=== PATIENT | male | born 1935 | race Caucasian/White ===

== ENCOUNTER → 2017-05-08 | Day surgery (SDC) | payer MEDICARE, OTHER ==
[~2017-05-08] MED LIST: BACITRACIN IM FOR SOLN 50,000 UNIT VIAL ONE; BUPIVACAINE/EPINEPHRINE 0.25% 50 ML VIAL ONE; LACTATED RINGER'S 1000 ML INJ 1,000 ML ONE; LIDOCAINE 1%/EPINEPHrine 1:200,000 PF SOLN 30 ML VIAL ONE; PROPOFOL 100 MG/10 ML INJ IV ONE; SODIUM CHLORIDE 0.9% INJ 10 ML ONE; ceFAZolin INJ 1,000 MG VIAL ONE
--- NOTE | 2017-05-08 12:05 | TN ---
cc: MARIO BALL M.D. DATE OF SURGERY 05/08/2017 PREOPERATIVE DIAGNOSIS Recurrent left elbow olecranon bursitis. POSTOPERATIVE DIAGNOSIS Recurrent left elbow olecranon bursitis. PROCEDURE PERFORMED Revision left olecranon bursectomy with excision of redundant skin. SURGEON MD Scott ANESTHESIA General via laryngeal mask augmented by local infiltration. BLOOD LOSS Minimal. FLUID REPLACEMENT 250 cc of crystalloid. SPECIMENS Olecranon bursa that was sent for both aerobic and anaerobic cultures as well as formal pathology. DRAINS No drains were utilized. TOURNIQUET TIME No tourniquet was utilized. COMPLICATIONS There were no intraoperative complications. IMPLANTS No implants used. COUNTS All counts were correct. INDICATIONS FOR PROCEDURE Mr. Ludwig is a 81-year-old gentleman who developed a large recurrent left olecranon bursa mass three years following resection of it previously. Please note that it had been resected once in 2012 and then again in 2013. Due to his limited mobility, he is very dependent on bearing weight on his elbows and he feels that he does that a great deal to reposition frequently and that is the likely etiology of his problem with his recurrent bursitis. He has never had any issues with septic olecranon bursitis or previous aspirations. As a result of the large uncomfortable and cosmetically concerning mass, he is being taken to the operating room for a third attempted resection. He was aware of the risks, benefits, potential complications and limitations of the procedure including the possible risks of recurrence, infection, wound healing, loss of elbow motion and neurovascular injury to the arm. Please note that he had been cleared medically by Dr. Segura, his primary care physician, and between his preoperative visit and his reassessment here today, he apparently was started on an oral antibiotic for a mild upper respiratory infection which seems relatively minimal at this time and he has excellent oxygen saturations and no evidence of any fever. DESCRIPTION OF PROCEDURE After the patient was properly identified in the holding area, he had correctly marked his left elbow and I had initialed it as well. 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 At this time he had his left arm prepped with alcohol and Hibiclens and then he was draped in the normal standard fashion also taking care to avoid excessive pressure over the fistula. Please note that an extremity drape was utilized as well as an impervious stockinette and wrapped gently with Coban. At this time a brief time-out was held confirming the left arm was the appropriate surgical site. The team was in agreement and the case was now initiated. He has a previous incision over the posterior aspect of the elbow which was carefully reopened. The subcutaneous tissues were divided and a distended bursa came immediately into view. As soon as the small penetration was made through the bursal sac itself, it spontaneously decompressed a large amount of dark blood consistent with large hematoma within the bursa itself. There were some hypertrophic changes to the bursa itself, but a large portion of the mass was related to the large hematoma. There was a fair amount of clotted blood as well that would been quite difficult to aspirate and would have likely required open debridement despite a successful aspiration as it would not likely evacuated the majority of it. At this time I meticulously performed an olecranon bursectomy taking off of the bursal tissue from the undersurface of the subcutaneous tissue being careful not to buttonhole through the skin and very meticulously dissected off of both the olecranon as well as the posterior aspect of the triceps. I was able to clearly seen normal-appearing planes on the surface of the triceps and over the olecranon consistent with very near-complete excision of this tissue. There was no evidence of any active bleeding. The wound was thoroughly irrigated with antibiotic-containing saline. At this time I went ahead and did a trial closure of the wound with Allis clamps and there was a fair amount of redundant skin that I felt was appropriate to excise to help prevent problems with recurrent space formation. I went ahead and excised 3-4 mm of skin from each skin flap taking almost 1 cm across of skin throughout the entire length of the incision. I did a second reapproximation of the skin edges at this time and felt that the space was significantly improved, if not fully eliminated. I went ahead and placed approximately a six or eight subcutaneous Vicryl sutures to reapproximate the skin edges and was quite satisfied with the overall appearance and then I closed the skin with interrupted 3-0 nylon sutures. The elbow looked quite good following closure and there was no evidence of any significant cosmetic deformity upon completion. There was not excessive tension on the wound and his elbow had good range of motion. I went ahead and then injected 20 cc of 0.25% Marcaine with epinephrine for local anesthetic effect and was then dressed with Xeroform, 4x4s, ABDs, Amarilis and an Kishore wrap. Next I was able to palpate the fistula that continued to have a palpable thrill consistent with being intact and the dressings were placed somewhat loosely and not directly compressing the fistula itself. He was then awoken from anesthesia and taken to Recovery in stable condition. Please note that the procedure was performed in a lazy lateral position with the use of a beanbag and all bony prominences were carefully padded. There was no evidence of any skin breakdown following the completion of the procedure. Please also note that instructions for the dialysis nurse who will be seeing him tomorrow have been written out so she can perform a dressing change for him postoperatively. Appropriate discharge instructions have been written. Mario Ball mD Electronically Signed Mario Ball MD SIS/SSB /11:13 AM /11:38 AM MTDD
== END | disposition home or self-care (01) ==
LOC: ESDC 08:44
PROVIDERS: ATTEND Orthopaedic Surgery Sports Medicine
DX: M70.22 Olecranon bursitis, left elbow (principal)
CPT/HCPCS: 01710; 24105; 87070; 87176; 87205; 88304; J0690; J3010; J7120